=== PATIENT | male | born 1990 | race Caucasian/White ===

== ENCOUNTER 2018-09-29 00:36 | Emergency (ER) | payer OTHER ==
[~2018-09-29] VITALS: Ht 170.2 cm; Wt 68.5 kg
[2018-09-29 01:01] VITALS: Ht 170.2 cm; Wt 68.5 kg
[2018-09-29 02:14] VITALS: BP 129/77
== END 2018-09-29 02:14 | disposition home or self-care (01) ==
LOC: ED 00:36
DX: K52.9 Noninfective gastroenteritis and colitis, unspecified (principal)